=== PATIENT | male | born 1990 | race African-American/Black ===

== ENCOUNTER 2018-02-27 09:03 | Emergency (ER) | payer SELFPAY ==
--- NOTE | 2018-02-27 09:55 | RAD ---
NASAL BONE THREE VIEWS: History: 27-year-old male with history of injury to nose from trauma. FINDINGS: There is an essentially nondisplaced fracture involving the left nasal bone. IMPRESSION: Left nasal bone mildly displaced fracture. POS: C
== END 2018-02-27 09:42 | disposition home or self-care (01) ==
LOC: ERS 09:03
DX: S02.2XXA Fracture of nasal bones, initial encounter for closed fracture (principal); J45.909 Unspecified asthma, uncomplicated; F41.9 Anxiety disorder, unspecified; F90.9 Attention-deficit hyperactivity disorder, unspecified type; F17.210 Nicotine dependence, cigarettes, uncomplicated; Z71.6 Tobacco abuse counseling; Y04.8XXA Assault by other bodily force, initial encounter
CPT/HCPCS: 70160; 99406

== ENCOUNTER 2019-01-07 14:39 | Emergency (ER) | payer SELFPAY | END 2019-01-07 15:21 | disposition left against medical advice (07) | LOC: ERS 14:39 | DX: Z53.21 Procedure and treatment not carried out due to patient leaving prior to being seen by health care provider (principal) ==

== ENCOUNTER 2019-08-24 21:15 | Emergency (ER) | payer SELFPAY ==
--- NOTE | 2019-08-24 21:42 | CT ---
CT head noncontrast HISTORY: Altered mental status. COMPARISON: 11/13/2016. FINDINGS: There is no evidence of acute intracranial hemorrhage or infarct. The ventricles appear nor mal in size, shape and position. There is no mass effect or shift of midline structures. Mild mucosal thickening left frontal sinus. IMPRESSION: No acute intracranial abnormalities are demonstrated.
--- NOTE | 2019-08-24 21:42 | RAD ---
Chest one view HISTORY: Altered mental status. COMPARISON: 11/13/2016. FINDINGS: Cardiac silhouette is magnified by projection. Pulmonary vasculature is unremarkable. Media stinum is midline. No lobar consolidation or evidence of pneumothorax. IMPRESSION: Normal exam.
[2019-08-24 21:47] LABS: ALT (SGPT) 22 U/L (8-55); AST (SGOT) 24 U/L (5-34); Albumin 4.8 g/dL (3.5-5.0); Alkaline Phosphatase 76 U/L (40-110); Anion Gap 17 mmol/L (10-20); BUN (Urea Nitrogen) 13 mg/dL (8.9-20.6); Bilirubin, Total 0.4 mg/dL (0.2-1.2); Calc. Creatinine Clearance 0 mL/min (70-130); Calcium 9.5 mg/dL (7.8-10.44); Carbon Dioxide 21 mmol/L (22-29); Chloride 105 mmol/L (98-107); Estimated GFR-MDRD 69; Globulin 3.2 g/dL (2.4-3.5); Glucose 130 mg/dL (70-105); Potassium 3.5 mmol/L (3.5-5.1); Sodium 139 mmol/L (136-145)
[2019-08-24 22:08] LABS: Eosinophils 1 % (0-10); Hemoglobin 14.3 g/dL (14.0-18.0); Lymphocytes 44 % (21-51); MDiff Complete? YES; Mean Corpuscular HGB CONC 32.5 g/dL (32.0-36.0); Mean Corpuscular Hemoglobin 25.4 pg (27.0-31.0); Mean Corpuscular Volume 78.2 fL (78.0-98.0); Mean Platelet Volume 10.5 fL (7.4-10.4); Monocytes 2 % (0-10); Neutrophil 53 % (42-75); Platelet Count 212 thou/uL (130-400); RBC Distribution Width 13.4 % (11.5-14.5); Red Blood Cell (RBC) Count 5.61 mill/uL (4.70-6.10); White Blood Cell (WBC) Count 17.7 thou/uL (4.8-10.8)
== END 2019-08-25 00:35 | disposition home or self-care (01) ==
LOC: ERS 21:15
DX: T78.02XA Anaphylactic reaction due to shellfish (crustaceans), initial encounter (principal)
CPT/HCPCS: 70450; 71045; 80053; 84484; 85025; 93005

== ENCOUNTER 2019-09-13 05:31 | Emergency (ER) | payer SELFPAY ==
[2019-09-13] MEDS ORDERED: Acetaminophen 500 MG TAB ONE (05:55)
--- NOTE | 2019-09-13 07:41 | RAD ---
EXAM: 3 views of the right hand COMPARISON: 07/13/2015 HISTORY: Hand pain FINDINGS: 3 views of the right hand shows no evidence of acute fracture or dislocation. There may be remodeling of the fifth metacarpal secondary to a remote healed fracture. No degenerative changes are seen. No soft tissue swelling is present. IMPRESSION: No evidence of acute osseous abnormality.
--- NOTE | 2019-09-13 07:48 | RAD ---
EXAM: Single view of the chest HISTORY: Multiple medical problems. Preoperative radiograph. COMPARISON: 08/24/2019 FINDINGS: Single view of the chest shows a normal sized cardiomediastinal silhouette. There is no [place] dence of consolidation, mass, or pleural effusion. The bones are unremarkable. IMPRESSION: No evidence of acute cardiopulmonary disease
== END 2019-09-13 06:14 | disposition home or self-care (01) ==
LOC: ERS 05:31
DX: R07.81 Pleurodynia (principal); M79.641 Pain in right hand
CPT/HCPCS: 71045

== ENCOUNTER 2019-11-28 12:13 | Emergency (ER) | payer SELFPAY | END 2019-11-28 12:38 | LOC: ERS 12:13 | DX: F43.0 Acute stress reaction (principal) | CPT/HCPCS: 99284 ==

== ENCOUNTER 2020-02-26 18:05 | Emergency (ER) | payer SELFPAY | END 2020-02-26 19:40 | LOC: ERS 18:05 | DX: F17.210 Nicotine dependence, cigarettes, uncomplicated | CPT/HCPCS: 99283 ==

== ENCOUNTER 2021-02-17 21:35 | Emergency (ER) | payer SELFPAY ==
[2021-02-17] MEDS ORDERED: Acetaminophen 500 MG TAB ONE (21:52)
== END 2021-02-17 21:57 ==
LOC: ERS 21:35
DX: M94.0 Chondrocostal junction syndrome [Tietze] (principal); F17.210 Nicotine dependence, cigarettes, uncomplicated
CPT/HCPCS: 93005

== ENCOUNTER 2021-03-23 | Emergency (ER) | payer SELFPAY | END 2021-03-23 00:20 | LOC: ERS | DX: R00.0 Tachycardia, unspecified (principal); R07.9 Chest pain, unspecified; F17.210 Nicotine dependence, cigarettes, uncomplicated | CPT/HCPCS: 71045; 93005 ==

== ENCOUNTER 2021-11-18 09:58 | Emergency (ER) | payer SELFPAY | END 2021-11-18 12:59 | LOC: ERS 09:58 | DX: Z53.21 Procedure and treatment not carried out due to patient leaving prior to being seen by health care provider (principal) ==